=== PATIENT | female | born 2005 | race African-American/Black ===

== ENCOUNTER 2025-04-14 00:25 | Emergency (ER) | payer MEDICAID ==
[~2025-04-14] VITALS: Ht 170.2 cm; Wt 54.4 kg
[2025-04-14 00:32] VITALS: TEMP 36.9; O2SAT 99
[2025-04-14 00:33] VITALS: O2SAT 99
[2025-04-14] MEDS ORDERED: KETOROLAC 15MG/ML VIAL IM ONE (01:30)
[2025-04-14] MEDS ORDERED: DEXAMETHASONE 10 MG/ML VIAL IM ONE (01:30)
[2025-04-14] MEDS: FAMOTIDINE 20MG TABLET PO ONE (01:59)
[2025-04-14 03:21] LABS: BASOPHILS % 0.3 % (0.0-2.0); EOSINOPHILS % 0.1 % (0.0-5.0); HEMATOCRIT. 37.1 % (36.0-48.0); HEMOGLOBIN. 12.2 g/dL (12.0-16.0); LYMPHOCYTES % 16.6 % (20.0-50.0); MEAN PLATELET VOLUME 8.7 fl (7.4-10.4); MONOCYTES % 11.1 % (2.0-8.0); NEUTROPHILS % 71.9 % (40.0-76.0); PLATELET 266 x1000/uL (130-400); RED BLOOD CELL COUNT 4.62 mill/uL (4.2-5.4); RED CELL DISTRIBUTION WIDTH 14.7 % (11.6-14.6)
[2025-04-14] MEDS ORDERED: AMOX1TAB16 MT (04:23)
[2025-04-14 04:37] LABS: CREATININE 1.1 mg/dL (0.6-1.0); UREA NITROGEN BLOOD 11 mg/dL (9-23)
[2025-04-14] MEDS: FAMOTIDINE 20MG TABLET PO SCH (04:45)
[2025-04-14 04:57] VITALS: BP 135/91; PULSE 96; RESP 16
[2025-04-14] MEDS: DEXAMETHASONE 10 MG/ML VIAL IM SCH (04:57)
[2025-04-14] MEDS: KETOROLAC 15MG/ML VIAL IM SCH (04:57)
== END 2025-04-14 04:58 | disposition home or self-care (01) ==
LOC: ER 00:25
DX: I89.1 Lymphangitis (principal); Z79.899 Other long term (current) drug therapy
CPT/HCPCS: 99284; 80048; 81025; 87430; 85025; 87070; 36415; 96372; J1885; J1100

== ENCOUNTER 2025-04-15 09:07 | Inpatient (IN) | payer MEDICAID ==
[2025-04-15] VITALS (25 sets, daily range): BP systolic 91–121; BP diastolic 64–83; PULSE 61–101; RESP 14–20; TEMP 36.9–37.0296; O2SAT 99–100
[~2025-04-15] VITALS: Ht 175.3 cm; Wt 70.3 kg
[~2025-04-15 09:07] MED LIST: AMOX1TAB16 MT
[2025-04-15 10:02] LABS: BASOPHILS % 0.3 % (0.0-2.0); EOSINOPHILS % 0.0 % (0.0-5.0); HEMATOCRIT. 38.2 % (36.0-48.0); HEMOGLOBIN. 12.7 g/dL (12.0-16.0); LYMPHOCYTES % 9.5 % (20.0-50.0); MEAN PLATELET VOLUME 8.8 fl (7.4-10.4); MONOCYTES % 11.9 % (2.0-8.0); NEUTROPHILS % 78.3 % (40.0-76.0); PLATELET 274 x1000/uL (130-400); RED BLOOD CELL COUNT 4.72 mill/uL (4.2-5.4); RED CELL DISTRIBUTION WIDTH 14.5 % (11.6-14.6)
[2025-04-15 10:12] LABS: HCG SCREEN NEGATIVE
[2025-04-15 10:14] LABS: CREATININE 1.1 mg/dL (0.6-1.0); UREA NITROGEN BLOOD 11 mg/dL (9-23)
[2025-04-15] MEDS ORDERED: CLINDAMYCIN 600 MG in DEXTROSE 5% WATER 50 ML IV ONE (10:45)
[2025-04-15] MEDS: CLINDAMYCIN 600MG PREMIX 50 ML IV SCH (11:42)
[2025-04-15] MEDS: SODIUM CHLORIDE 0.9% 1,000 ML IV ONE ×2 (11:42→16:15)
[2025-04-15] MEDS: MORPHINE SULFATE 4 MG/ML INJ (FOR IV/IM USE) IV ONE (11:52)
[2025-04-15] MEDS: ONDANSETRON HCL 4MG/2ML INJ IV ONE (11:52)
[2025-04-15] MEDS ORDERED: MIDAZOLAM HCL 100 MG in DEXT 5% WATER 80 ML IV ONE (12:15)
[2025-04-15] MEDS: MIDAZOLAM HCL 2 MG/2 ML VIAL IV ONE (12:42)
[2025-04-15] MEDS: MIDAZOLAM 100MG/100ML PMX 100 ML IV ONE (12:44)
[2025-04-15] MEDS ORDERED: PROPOFOL 10MG/ML 100ML 100 ML IV SCH (12:45)
[2025-04-15] MEDS: ETOMIDATE 2MG/ML 10ML VIAL IV ONE (12:48)
[2025-04-15] MEDS: SUCCINYLCHOLINE CHLORIDE 200MG/10ML IV ONE (12:48)
[2025-04-15] MEDS ORDERED: DEXAMETHASONE 4MG/ML 1ML VIAL IV ONE (13:00)
[2025-04-15] MEDS ORDERED: MAGNESIUM/ALUMINUM HYDROXIDE/SIMETHICONE 30ML UDC PO PRN (14:15)
[2025-04-15] MEDS ORDERED: CLONIDINE 0.1MG TABLET PO PRN (14:15)
[2025-04-15] MEDS ORDERED: ACETAMINOPHEN 325MG TABLET PO PRN (14:15)
[2025-04-15] MEDS ORDERED: HYDROCODONE/ACETAMINOPHEN 5/325MG TABLET PO PRN (14:15)
[2025-04-15] MEDS ORDERED: MORPHINE SULFATE 2 MG/ML INJ (NOT FOR IM USE) IV PRN (14:15)
[2025-04-15] MEDS ORDERED: ONDANSETRON HCL 4MG/2ML INJ IV PRN (14:15)
[2025-04-15] MEDS: IOHEXOL-300 100 ML BOTTLE ONE (14:16)
[2025-04-15] MEDS ORDERED: NALOXONE HCL 0.4MG/ML VIAL IV PRN (14:30)
[2025-04-15 14:34] LABS: BG BASE EXCESS 0.7 mmol/L (-2.0-3.0); BG CARBOXYHEMOGLOBIN 0.1 % (0.5-1.5); BG DEOXYHEMOGLOBIN 0.4 % (0.0-5.0); BG FRACTION INSPIRED OXYGEN 50; BG HCO3 ACT 24.7 mmol/L (21.0-28.0); BG METHEMOGLOBIN 0.1 % (0.5-1.5); BG OXYGEN SATURATION 99.6 % (94.0-98.0); BG OXYHEMOGLOBIN 99.4 % (94.0-98.0); BG PCO2 36.9 mmHg (32.0-45.0); BG PEEP (cmH2O) 5.0 cmH2O; BG PH 7.443 (7.350-7.450); BG PO2 250.1 mmHg (83.0-108.0); BG SAMPLE SITE RIGHT BRACHIAL; BG TIDAL VOLUME(mL) 450.0 mL; BG TOTAL HEMOGLOBIN 10.1 g/dL (12.0-16.0); BG TOTAL RESPIRATORY RATE 14 b/min; BG VENT MODE VENT - AC; BG VENT RATE 14.0 set
[2025-04-15] MEDS: PANTOPRAZOLE SODIUM 40 MG/VIAL IV SCH (15:25)
[2025-04-15] MEDS: AMPICILLIN SOD/SULBACTAM NA 3 G in SODIUM CHLORIDE 0.9% 100 ML IV SCH ×2 (15:25→18:33)
[2025-04-15] MEDS: ENOXAPARIN 40MG/0.4ML SYR SUBCUT SCH (15:25)
[2025-04-15] MEDS: KETOROLAC 30MG/ML VIAL IV SCH (15:26)
[2025-04-15] MEDS: DEXAMETHASONE 4MG/ML 1ML VIAL IV NR (16:01)
[2025-04-15] MEDS: PROPOFOL 10MG/ML 100ML 100 ML IV SCH (17:37)
[2025-04-15] MEDS: VANCOMYCIN 1.25GM/250ML 250 ML IV SCH (18:33)
[2025-04-15] MEDS: DEXAMETHASONE 4MG TABLET PO SCH (18:36)
[2025-04-15] MEDS: IPRATROPIUM/ALBUTEROL 0.5-3(2.5)MG/3ML NEB NEB SCH (20:36)
[2025-04-15] MEDS: FENTANYL 2500MCG/250ML PMX 250 ML IV PRN (20:52)
[2025-04-15] MEDS: MIDAZOLAM 100MG/100ML PMX 100 ML IV PRN (20:52)
[2025-04-15] MEDS: QUETIAPINE FUMARATE 50MG TABLET PO SCH (20:53)
[2025-04-16] MEDS ORDERED: VANCOMYCIN 750MG PREMIX 150 ML IV SCH
== END 2025-04-15 22:59 | disposition short-term general hospital (02) | DRG 720 ==
LOC: ER 09:07 → ENRESERV 14:24 → MICUSO 17:14
PROVIDERS: ADMIT Internal Medicine; ATTEND Internal Medicine
PROC: 5A1935Z Respiratory Ventilation, Less than 24 Consecutive Hours (ICD-10-PCS; principal; 2025-04-15)
PROC: 0BH17EZ Insertion of Endotracheal Airway into Trachea, Via Natural or Artificial Opening (ICD-10-PCS; 2025-04-15)
DX: A41.9 Sepsis, unspecified organism (principal); J96.01 Acute respiratory failure with hypoxia; N17.9 Acute kidney failure, unspecified; F50.20 Bulimia nervosa, unspecified; F31.9 Bipolar disorder, unspecified; J36 Peritonsillar abscess; L03.211 Cellulitis of face; K11.5 Sialolithiasis; K11.20 Sialoadenitis, unspecified; M27.2 Inflammatory conditions of jaws; Z86.59 Personal history of other mental and behavioral disorders
CPT/HCPCS: 31500; 36415; 36600; 70491; 71045; 80048; 82375; 82805; 84145; 84703; 85025; 93970; 94003; 94070; 94664; 98960; 99291; J0295; J1100; J1650; J1885; J2250; J2270; J2405; J2470; J2704; J3373; J3490; J7030; J7050; J7060; J8540; Q9967